=== PATIENT | male | born 1980 | race Caucasian/White ===

== ENCOUNTER 2018-03-24 07:27 | Observation (INO) ==
[~2018-03-24 07:27] MED LIST: ANCEF VIAL 1 GRAM 2 G in NS 100 ML IV 100 ML IV PRN
[2018-03-24] MEDS ORDERED: MARCAINE 0.25% INJ ONE (07:33)
[2018-03-24] MEDS ORDERED: XYLOCAINE 1% and EPINEPHRINE 1:100,000 ONE (07:33)
[2018-03-24] MEDS ORDERED: ANCEF 1 GRAM IV PREMIX* 2 G/100 ML BAG IV ONE (07:40)
[2018-03-24] MEDS ORDERED: NS 1000 ML 1,000 ML IV SCH (08:00)
[2018-03-24] MEDS ORDERED: FENTANYL INJ 250 mcg ONE (08:14)
[2018-03-24 08:51] LABS: BASOPHILS # (AUTO) 0.1 X10^3/uL (0.0-0.1); BASOPHILS % (AUTO) 0.8 % (0.2-1.0); EOSINOPHILS % (AUTO) 0.4 % (0.9-2.9); HEMATOCRIT 34.1 % (42.0-54.0); LYMPHOCYTES # (AUTO) 1.4 X10^3/uL (1.3-2.9); LYMPHOCYTES % (AUTO) 19.4 % (21.0-51.0); MEAN CORPUSCULAR HEMOGLOBIN 31.3 pg (27.0-34.0); MEAN CORPUSCULAR HGB CONC 35.1 g/dL (33.0-35.0); MEAN CORPUSCULAR VOLUME 89.3 fL (80.0-100.0); MONOCYTES # (AUTO) 0.6 x10^3/uL (0.3-0.8); MONOCYTES % (AUTO) 7.7 % (0.0-13.0); NEUTROPHILS # (AUTO) 5.2 x10^3/uL (2.2-4.8); NEUTROPHILS % (AUTO) 71.7 % (42.0-75.0); PLATELET COUNT 105 X10^3/uL (150.0-450.0); RED BLOOD COUNT 3.82 X10^6/uL (4.7-6.0); RED CELL DISTRIBUTION WIDTH 15.8 % (11.6-16.5); WHITE BLOOD COUNT 7.2 X10^3/uL (3.6-10.0)
[2018-03-24 09:04] LABS: ALANINE AMINOTRANSFERASE 50 Units/L (12-78); ALBUMIN 4.1 g/dL (3.4-5.0); ALKALINE PHOSPHATASE 220 Units/L (46-116); ASPARTATE AMINO TRANSFERASE 40 Units/L (15-37); BLOOD UREA NITROGEN 42 mg/dL (7-18); CALCIUM 8.6 mg/dL (8.5-10.1); CARBON DIOXIDE 24.8 mmol/L (21-32); CHLORIDE 91 mmol/L (98-107); COR NA(FOR HYPERGLY) 133 mmol/L (136-145); SODIUM 132 mmol/L (136-145); TOTAL PROTEIN 7.8 g/dL (6.4-8.2); eGFR NON BLACK RACES 24 (>60)
[2018-03-24] MEDS ORDERED: NS 1000 ML 1,000 ML IV ONE (14:01)
[2018-03-24 14:31] LABS: MAGNESIUM 2.3 mg/dL (1.7-2.9)
[2018-03-24] MEDS: NICOTINE PATCH TD SCH (15:20)
[2018-03-24 15:37] VITALS: BMI 26.6
--- NOTE | 2018-03-24 17:06 | US ---
History: Elevated creatinine Exam: Renal ultrasound Comparison: None Technique: Multiple grayscale and color flow Doppler images of the kidneys were obtained. Findings: The right kidney measures 10 x 5.5 x 6 cm. The left kidney measures 9.6 x 5 x 5 cm. Both kidneys are normal in echogenicity with no hydronephrosis, renal stone, or mass. The bladder is unremarkable. IMPRESSION: No abnormality seen. Reported By:
[2018-03-24 17:30] LABS: BILIRUBIN,URINE NEGATIVE (NEGATIVE); BLOOD/HEMOGLOBIN,URINE 2+ (NEGATIVE); GLUCOSE, URINE 4+ (NEGATIVE); KETONES,URINE 2+ (NEGATIVE); LEUKOCYTE ESTERASE ,URINE NEGATIVE (NEGATIVE); NITRITES,URINE NEGATIVE (NEGATIVE); PROTEIN,URINE 2+ (NEGATIVE); UROBILINOGEN,URINE NORMAL (NORMAL)
[2018-03-24 17:35] LABS: APPEARANCE,URINE CLEAR (CLEAR); COLOR,URINE YELLOW (YELLOW)
[2018-03-24 17:36] LABS: AMORPHOUS SEDIMENT,UR 1+ /HPF (NEGATIVE); BACTERIA,URINE TRACE /HPF (NEGATIVE); SQUAMOUS EPITHELIAL CELL,UR RARE /HPF (NEGATIVE)
[2018-03-24] MEDS ORDERED: SNACK - Diabetic Appropriate PO SCH ×2 (20:00)
[2018-03-24] MEDS: ULTRAM PO PRN (20:06)
[2018-03-24] MEDS: LIBRIUM PO SCH ×3 (20:47→21:10)
[2018-03-24] MEDS: HumuLIN R SUBCUT PRN (20:47)
[2018-03-24] MEDS: LEVEMIR SC SCH (20:50)
[2018-03-24] MEDS: NS 1000 ML 1,000 ML IV SCH (20:52)
[2018-03-24] MEDS: SNACK - Diabetic Appropriate PO SCH (20:52)
[2018-03-25] MEDS: NS 1000 ML 1,000 ML IV SCH ×3 (04:22→17:19)
[2018-03-25] MEDS: LIBRIUM PO SCH ×2 (05:40→16:19)
[2018-03-25 06:06] LABS: ALANINE AMINOTRANSFERASE 45 Units/L (12-78); ALBUMIN 3.6 g/dL (3.4-5.0); ALKALINE PHOSPHATASE 187 Units/L (46-116); ASPARTATE AMINO TRANSFERASE 24 Units/L (15-37); BLOOD UREA NITROGEN 39 mg/dL (7-18); CALCIUM 9.1 mg/dL (8.5-10.1); CARBON DIOXIDE 24.5 mmol/L (21-32); CHLORIDE 99 mmol/L (98-107); COR NA(FOR HYPERGLY) 136 mmol/L (136-145); FREE T4 (FREE THYROXINE) 1.01 ng/dL (0.76-1.46); SODIUM 135 mmol/L (136-145); TOTAL PROTEIN 6.8 g/dL (6.4-8.2); TSH (3RD GENERATION) 0.751 uIU/mL (0.358-3.74); eGFR NON BLACK RACES 48 (>60)
[2018-03-25 06:26] LABS: BASOPHILS % (AUTO) 0.7 % (0.2-1.0); EOSINOPHILS % (AUTO) 0.7 % (0.9-2.9); HEMATOCRIT 32.3 % (42.0-54.0); LYMPHOCYTES # (AUTO) 1.6 X10^3/uL (1.3-2.9); LYMPHOCYTES % (AUTO) 29.7 % (21.0-51.0); MEAN CORPUSCULAR HEMOGLOBIN 31.2 pg (27.0-34.0); MEAN CORPUSCULAR HGB CONC 34.2 g/dL (33.0-35.0); MEAN CORPUSCULAR VOLUME 91.2 fL (80.0-100.0); MEAN PLATELET VOLUME 10.1 fL (7.4-11.0); MONOCYTES # (AUTO) 0.5 x10^3/uL (0.3-0.8); MONOCYTES % (AUTO) 10.1 % (0.0-13.0); NEUTROPHILS # (AUTO) 3.1 x10^3/uL (2.2-4.8); NEUTROPHILS % (AUTO) 58.8 % (42.0-75.0); PLATELET COUNT 75 X10^3/uL (150.0-450.0); RED BLOOD COUNT 3.54 X10^6/uL (4.7-6.0); WHITE BLOOD COUNT 5.3 X10^3/uL (3.6-10.0)
[2018-03-25] MEDS: NICOTINE PATCH TD SCH (08:32)
[2018-03-25] MEDS: LEVEMIR SC SCH ×2 (08:34→23:00)
[2018-03-25] MEDS: HumuLIN R SUBCUT PRN ×3 (11:30→23:00)
[2018-03-25] MEDS ORDERED: VISTARIL PO PRN (14:10)
[2018-03-25] MEDS ORDERED: ATIVAN TAB 0.5 MG PO PRN (17:25)
[2018-03-25] MEDS ORDERED: BENADRYL INJ 50 MG VIAL IVP ONE (17:25)
[2018-03-25] MEDS: ULTRAM PO PRN (17:40)
[2018-03-25 17:57] LABS: SERUM ACETONE SMALL (NEGATIVE)
[2018-03-25 18:01] LABS: HEMOGLOBIN A1C 9.8 %
[2018-03-25] MEDS: SNACK - Diabetic Appropriate PO SCH (20:00)
[2018-03-26] MEDS: NS 1000 ML 1,000 ML IV SCH ×2 (01:00→03:34)
[2018-03-26] MEDS: NICOTINE PATCH TD SCH (09:40)
[2018-03-26] MEDS: LEVEMIR SC SCH (09:41)
[2018-03-26] MEDS: HumuLIN R SUBCUT PRN ×2 (11:20→16:30)
[2018-03-26] MEDS ORDERED: FENTANYL INJ 250 mcg ONE (11:36)
[2018-03-26] MEDS ORDERED: ANCEF 1 GRAM IV PREMIX* 1 G/50 ML BAG IV ONE ×2 (11:39→11:49)
[2018-03-26] MEDS ORDERED: NS 1000 ML 1,000 ML ONE (11:39)
[2018-03-26] MEDS ORDERED: XYLOCAINE 1% and EPINEPHRINE 1:100,000 ONE (12:04)
[2018-03-26] MEDS ORDERED: MARCAINE 0.25% INJ ONE (12:04)
[2018-03-26] MEDS ORDERED: DILAUDID INJ ONE (12:18)
[2018-03-26] MEDS ORDERED: FENTANYL INJ 100 mcg ONE ×2 (12:18→12:24)
--- NOTE | 2018-03-26 12:32 | DR.H&P ---
H&P - History & Physical for Day of: H&P Date: 03/24/18 - Chief Complaint Chief Complaint: ABDOMINAL PAIN - History of Present Illness History of Present Illness: 37 WM ADMITTED FOR TREATMENT OF DEHYDRATION, ELECTROLYTE REPLACEMENT. PT WAS SCHEDULED FOR LAP JOEL, PRE OP LABS REVEALED DECREASED RENAL FUNCTION AND HYPONATREMIA. PT ADMITTED FOR HYDRATION AND SURGICAL CLEARANCE. - Past Medical History Past Medical History: Anxiety, Depression, Diabetes, Hypertension - Past Surgical History Surgical History: Ortho Surgery - Family History Family Medical History: Diabetes Mellitus - Social History Does patient currently use any type of tobacco product: Yes Have you used tobacco products in the last 12 months: Yes Type of Tobacco Use: Cigarettes How many years tobacco product used: 10 Packs per day or dips/chews per day: 1 1/2 PPD Does any household member use tobacco: No Alcohol Use: Heavy, DAILY Drug Use: Marijuana - Medications Home Medications: furosemide [From Lasix] Allergy (Verified 03/24/18 18:02) gabapentin Allergy (Verified 03/24/18 18:02) lisinopril Allergy (Verified 03/24/18 18:02) CONTINUE taking the following medications atorvastatin 1 tab PO HS 03/24/18 [History] duloxetine 1 cap PO BID 03/24/18 [History] insulin aspart U-100 [Novolog U-100 Insulin aspart] 10 units SUB-Q AC 03/24/18 [ History] insulin detemir U-100 [Levemir U-100 Insulin] 50 units SUB-Q BID 03/24/18 [ History] levothyroxine 1 tab PO DAILY 03/24/18 [History] metoprolol tartrate 1 tab PO BID 03/24/18 [History] omeprazole 1 cap PO DAILY 03/24/18 [History] quetiapine 1 tab PO HS 03/24/18 [History] - Review of Systems Constitutional: No Symptoms Reported ENT: No Symptoms Reported Respiratory: No Symptoms Reported Cardiovascular: No Symptoms Reported Gastrointestinal: Nausea, Abdominal Pain Genitourinary: No Symptoms Reported Musculoskeletal: No Symptoms Reported Skin: No Symptoms Reported Neurological: No Symptoms Reported - Physical Exam Vital Signs: Temperature 98.4 F Pulse Rate [Apical] 98 Pulse Rate 84 Respiratory Rate 20 Blood Pressure [Right Arm] 142/90 Blood Pressure [Left Arm] 141/94 Blood Pressure 124/77 O2 Sat by Pulse Oximetry 97 Oriented: Normal Eyes: Normal Ear: Normal Nose: Normal Throat: Normal Respiratory: Clear Throughout Cardiovascular: Normal. negative: Edema Auscultation: Bowel Sounds: Normal Palpation: Normal Tenderness: RUQ Skin: Normal Musculoskeletal: Normal Psychiatric: Normal Mood Description: Calm Speech Pattern: Clear - Assessment/Plan (1) Hyponatremia Status: Acute Plan: ADMIT, IV HYDRATION. BLOOD SUGAR CONTROL. PAIN CONTROL. PRN ANXIETY MEDICAITON. RESUME HOME MEDS, BP MONITORING (2) Diabetes Status: Acute (3) Dehydration Status: Acute (4) Alcohol abuse Status: Acute - Allergies Allergies/Adverse Reactions: Allergies Allergy/AdvReac Type Severity Reaction Status Date / Time furosemide [From Lasix] Allergy Verified 03/24/18 18:02 gabapentin Allergy Verified 03/24/18 18:02 lisinopril Allergy Verified 03/24/18 18:02
--- NOTE | 2018-03-26 12:39 | PCM.PROG ---
Progress Note - Progress Note for Day of Date: 03/26/18 - Subjective Subjective: 37 WM ADMITTED ONE DAY AGO FOR SURGICAL CLEARANCE FOR LAP JOEL. PT HAS IMPROVED SODIUM THIS AM AND IMPROVED RENAL FUNCTION. NPO THIS AM. PT HAD CXR AND EKG, WILL CONTIUE PRN MEDICATION, CLEAR FOR SURGICAL INTERVENTION. - Past Medical Family Social History Past Med/Fam/Surg Hx: No changes since H&P Allergies: Allergies furosemide [From Lasix] Allergy (Verified 03/24/18 18:02) gabapentin Allergy (Verified 03/24/18 18:02) lisinopril Allergy (Verified 03/24/18 18:02) - Review of Systems ROS: No change since H&P - Vital Signs and I&O's Vital Signs: Temperature 98.4 F Pulse Rate [Apical] 98 Pulse Rate 84 Respiratory Rate 20 Blood Pressure [Right Arm] 142/90 Blood Pressure [Left Arm] 141/94 Blood Pressure 124/77 O2 Sat by Pulse Oximetry 97 Intake and Output: Intake & Output 03/24/18 03/25/18 03/26/18 03/27/18 11:59 11:59 11:59 11:59 Intake Total 0 / 0 480 / 480 2560 / 2560 Output Total 0 / 0 Balance 0 / 0 480 / 480 2560 / 2560 - Physical Exam Oriented: Normal Eyes: Normal Ear: Normal Nose: Normal Throat: Normal Respiratory: Normal Cardiovascular: Normal. negative: Edema Auscultation: Bowel Sounds: Normal Tenderness: RUQ Skin: Normal Musculoskeletal: Normal Psychiatric: Normal Mood Description: Calm Speech Pattern: Clear - Laboratory and Diagnostics Result Diagrams: 03/25/18 04:48 03/25/18 22:10 Labs: 03/24/18 16:50 Urine,Clean Catch Urine Culture - Final Laboratory WBC 5.3 X10^3/uL (3.6-10.0) 03/25/18 04:48 RBC 3.54 X10^6/uL (4.7-6.0) L 03/25/18 04:48 Hgb 11.0 g/dL (13.5-18.0) L 03/25/18 04:48 Hct 32.3 % (42.0-54.0) L 03/25/18 04:48 MCV 91.2 fL (80.0-100.0) 03/25/18 04:48 MCH 31.2 pg (27.0-34.0) 03/25/18 04:48 MCHC 34.2 g/dL (33.0-35.0) 03/25/18 04:48 RDW 16.0 % (11.6-16.5) 03/25/18 04:48 Plt Count 75 X10^3/uL (150.0-450.0) L 03/25/18 04:48 MPV 10.1 fL (7.4-11.0) 03/25/18 04:48 Neut % (Auto) 58.8 % (42.0-75.0) 03/25/18 04:48 Lymph % (Auto) 29.7 % (21.0-51.0) 03/25/18 04:48 [place] % (Auto) 10.1 % (0.0-13.0) 03/25/18 04:48 Eos % (Auto) 0.7 % (0.9-2.9) L 03/25/18 04:48 Baso % (Auto) 0.7 % (0.2-1.0) 03/25/18 04:48 Neut # (Auto) 3.1 x10^3/uL (2.2-4.8) 03/25/18 04:48 Lymph # (Auto) 1.6 X10^3/uL (1.3-2.9) 03/25/18 04:48 [place] # (Auto) 0.5 x10^3/uL (0.3-0.8) 03/25/18 04:48 Eos # (Auto) 0.0 x10^3/uL (0.0-0.2) 03/25/18 04:48 Baso # (Auto) 0.0 X10^3/uL (0.0-0.1) 03/25/18 04:48 Absolute Nucleated RBC 0.0 /100WBC 03/25/18 04:48 D-Dimer 174 ng/mL (0-400) 03/24/18 08:44 Sodium 135 mmol/L (136-145) L 03/25/18 04:48 Corrected Sodium 136 mmol/L (136-145) 03/25/18 04:48 Potassium 3.6 mmol/L (3.5-5.1) 03/25/18 04:48 Chloride 99 mmol/L (98-107) 03/25/18 04:48 Carbon Dioxide 24.5 mmol/L (21-32) 03/25/18 04:48 BUN 39 mg/dL (7-18) H 03/25/18 04:48 Creatinine 1.70 mg/dL (0.70-1.30) H 03/25/18 04:48 Est GFR (MDRD) Af Amer 58 (>60) L 03/25/18 04:48 Est GFR (MDRD) Non-Af 48 (>60) L 03/25/18 04:48 Glucose 340 mg/dL (65-99) H 03/25/18 22:10 POC Glucose (mg/dL) 266 mg/dL (65-99) H 03/26/18 11:12 Hemoglobin A1c 9.8 % 03/25/18 14:39 Calcium 9.1 mg/dL (8.5-10.1) 03/25/18 04:48 Corrected Calcium TNP 03/25/18 04:48 Magnesium 2.3 mg/dL (1.7-2.9) 03/24/18 08:44 Total Bilirubin 0.50 mg/dL (0.2-1.0) 03/25/18 04:48 AST 24 Units/L (15-37) 03/25/18 04:48 ALT 45 Units/L (12-78) 03/25/18 04:48 Alkaline Phosphatase 187 Units/L (46-116) H 03/25/18 04:48 Total Protein 6.8 g/dL (6.4-8.2) 03/25/18 04:48 Albumin 3.6 g/dL (3.4-5.0) 03/25/18 04:48 Globulin 3.2 g/dL (2.5-4.5) 03/25/18 04:48 Albumin/Globulin Ratio 1.1 Ratio (1.1-2.1) 03/25/18 04:48 Amylase 47 Units/L (25-115) 03/24/18 08:44 Lipase 101 Units/L (73-393) 03/24/18 08:44 Free T4 1.01 ng/dL (0.76-1.46) 03/25/18 04:48 TSH 3rd Generation 0.751 uIU/mL (0.358-3.74) 03/25/18 04:48 Specimen Type Clean catch urine 03/24/18 16:50 Urine Color Yellow (YELLOW) 03/24/18 16:50 Urine Appearance Clear (CLEAR) 03/24/18 16:50 Urine pH 5.0 (5.0 - 8.0) 03/24/18 16:50 Ur Specific [place] 1.015 (1.000-1.030) 03/24/18 16:50 Urine Protein 2+ (NEGATIVE) 03/24/18 16:50 Urine Glucose (UA) 4+ (NEGATIVE) 03/24/18 16:50 Urine Ketones 2+ (NEGATIVE) 03/24/18 16:50 Urine Occult Blood 2+ (NEGATIVE) 03/24/18 16:50 Urine Nitrite Negative (NEGATIVE) 03/24/18 16:50 Urine Bilirubin Negative (NEGATIVE) 03/24/18 16:50 Urine Urobilinogen Normal (NORMAL) 03/24/18 16:50 Ur Leukocyte Esterase Negative (NEGATIVE) 03/24/18 16:50 Urine RBC 3-5 /HPF (NONE SEEN) 03/24/18 16:50 Urine WBC None seen /HPF (NONE SEEN) 03/24/18 16:50 Ur Squamous Epith Cells Rare /HPF (NEGATIVE) 03/24/18 16:50 Amorphous Sediment 1+ /HPF (NEGATIVE) 03/24/18 16:50 Urine Bacteria Trace /HPF (NEGATIVE) 03/24/18 16:50 Ur Culture Indicated? Yes/culture set up 03/24/18 16:50 Urine Opiates Screen Negative (NEG=<300) 03/25/18 14:22 Urine Methadone Screen Negative (NEG=<300) 03/25/18 14:22 Ur Barbiturates Screen Negative (NEG=<200) 03/25/18 14:22 Ur Phencyclidine Scrn Negative (NEG=<25) 03/25/18 14:22 Ur Amphetamines Screen Negative (NEG=<1000) 03/25/18 14:22 U Benzodiazepines Scrn Negative (NEG=<200) 03/25/18 14:22 Urine Cocaine Screen Negative (NEG=<300) 03/25/18 14:22 U Marijuana (THC) Screen Positive (NEG=<50) A 03/25/18 14:22 Ethyl Alcohol mg/dL < 3 mg/dL (0-19.9) 03/25/18 14:39 Acetone, Semi-Quant Small (NEGATIVE) H 03/25/18 14:39 - Plan (1) Hyponatremia Status: Acute Plan: IV HYDRATION. BLOOD SUGAR CONTROL. PAIN CONTROL. PRN ANXIETY MEDICAITON. RESUME HOME MEDS, BP MONITORING (2) Diabetes Status: Acute (3) Dehydration Status: Acute Plan: GENTLE HYDRATION (4) Alcohol abuse Status: Acute (5) Biliary dyskinesia Status: Acute Plan: NPO FOR LAP JOEL TODAY
[2018-03-26] MEDS ORDERED: REGLAN INJ 10 MG VIAL IVP PRN (13:09)
[2018-03-26] MEDS ORDERED: BENADRYL INJ 50 MG VIAL IVP PRN (13:09)
[2018-03-26] MEDS ORDERED: PHENERGAN INJ 25 MG IVP PRN (13:09)
[2018-03-26] MEDS ORDERED: ZOFRAN INJ 4 MG VIAL IVP PRN (13:09)
[2018-03-26] MEDS ORDERED: DILAUDID INJ IVP PRN (13:09)
--- NOTE | 2018-03-26 13:11 | OR.GENERIC ---
Post-Op Note Generic - Post-Op Note Operative Report: Operative Report Date of Operation: March 26, 2018 Pre-Operative Diagnosis: 1. Biliary dyskinesia. 2. Cholelithiasis. 3. Diabetes mellitus. 4. Recurrent pancreatitis. Post-Operative Diagnosis: 1. Biliary dyskinesia. 2. Cholelithiasis. 3. Diabetes mellitus. 4. Recurrent pancreatitis. 5. Nodular liver. Procedure: Laparoscopic cholecystectomy. Surgeon: Joe Navarro MD. Electric Powerline Examiner: Americo Montero CRNA. Specimen: Gallbladder. Estimated blood loss: 50 mL. Complications: None. Summary: The patient is a 37 year old male who presented with biliary dyskinesia, cholelithiasis, diabetes mellitus, and recurrent pancreatitis. The patient was offered cholecystectomy. The risk and benefits of the procedure including difficulty with anesthesia, bleeding, infection, conversion to open procedure, bile leak, hernia formation, DVT, as well as PE were discussed with the patient. The patient understood these risks and requested the procedure. On March 26, 2018, the patient was brought to the operative theatre. A time out was performed verifying the patient and procedure. The patient received Ancef for pre-operative antibiosis. After satisfactory induction of general endotracheal anesthesia, the abdomen was prepped with Chloraprep and draped in the usual sterile fashion. The skin and subcutaneous tissue inferior to the umbilicus was anesthetized using local anesthetic. The skin was incised sharply. A 12 mm trocar was placed though the incision and into the peritoneal cavity using the Optiview technique. Carbon dioxide was infiltrated through this trocar to obtain a pneumoperitoneum of 15 mm Hg. A camera was placed through this trocar and swept in all directions. No injury was seen from entering the peritoneal cavity. A site was selected in the subxiphoid location for our 2nd trocar. The skin and fascia was anesthetized using local anesthetic. The skin was incised sharply. A 5 mm trocar was placed into the peritoneal cavity under direct visualization. In a similar manner, two additional 5 mm trocars were placed. The first was placed in the mid- clavicular line approximately 2 fingerbreadths inferior to the left costal margin and a second in the anterior axillary line approximately 2 fingerbreadths inferior to the left costal margin. The patient was placed in reverse Trendelenburg and rotated to the patients left. The gallbladder was grasped at the fundus and elevated cephalad and slightly lateral. The liver was noted to be nodular. The peritoneum on the medial and lateral aspects of the infundibulum of the gallbladder was scored using hook electrocautery. The liver tore with retraction at the edge of the gallbladder. Bleeding was controlled using electrocautery. Using blunt dissection, the cystic artery and duct were isolated. The critical view of safety was obtained. A posterior branch of the cystic artery was seen with active bleeding. This was controlled with endoclips. No further bleeding was seen. The cystic duct and artery were divided between endoclips. The gallbladder was dissected free using hook electrocautery. The gallbladder was placed in an endobag and removed through the umbilical trocar site without difficulty. The trocar and camera were placed back inside the abdomen. Our clips were noted in good position. Bleeding of the gallbladder fossa was controlled using electrocautery. At this point, the 5 mm trocars were removed under direct visualization. No bleeding was seen. The umbilical trocar was then removed and pneumoperitoneum released. The fascia at the umbilicus was closed using a 0-Vicryl placed in a figure-of- eight configuration. The skin edges at all incisions were re-approximated using inverted, interrupted 4-0 Monocryl sutures. Mastisol and Steri-strips were placed. Sterile dressings were placed. The patient was awakened and taken to the recovery room in stable condition. There were no complications. All counts were correct.
[2018-03-26] MEDS ORDERED: PERCOCET TAB 5/325 MG PO PRN (13:58)
[2018-03-26] MEDS ORDERED: CATAPRES TAB 0.1 MG PO PRN (15:11)
[2018-03-26] MEDS ORDERED: TORADOL 30 MG VIAL IVP ONE (15:15)
[2018-03-26] MEDS ORDERED: NEOSTIGMINE INJ ONE (15:29)
[2018-03-26] MEDS ORDERED: ZOFRAN INJ 4 MG VIAL ONE (15:29)
[2018-03-26] MEDS ORDERED: QUELICIN (OR ANECTINE) ONE (15:29)
[2018-03-26] MEDS ORDERED: NORCURON INJ 10 MG VIAL ONE (15:29)
[2018-03-26] MEDS ORDERED: VERSED ONE (15:29)
[2018-03-26] MEDS ORDERED: LTA KIT LIDOCAINE 4% ONE (15:29)
[2018-03-26] MEDS ORDERED: DIPRIVAN VIAL ONE (15:29)
[2018-03-26] MEDS ORDERED: ROBINUL ONE (15:29)
[2018-03-26] MEDS ORDERED: ULTANE GAS IN ONE (15:29)
[2018-03-26] MEDS ORDERED: XYLOCAINE 2 % (PLAIN) ONE (15:29)
[2018-03-26 17:19] VITALS: BP 141/81
--- NOTE | 2018-04-13 22:39 | PCM.DCPLAN ---
Discharge Summary - Admission Date Date of Admission: 03/24/18 - Discharge Date Discharge Date: 03/26/18 - Admission Diagnoses (1) Biliary dyskinesia Status: Acute (2) Dehydration Status: Acute (3) Diabetes Status: Acute (4) Acute kidney failure Status: Acute - Discharge Diagnoses Discharge Diagnosis: SAME ADMISSION DIAGNOSIS - Discharge Medications Discharge Medications: Home Medication List atorvastatin 1 tab PO HS 03/24/18 [History] duloxetine 1 cap PO BID 03/24/18 [History] insulin aspart U-100 [Novolog U-100 Insulin aspart] 10 units SUB-Q AC 03/24/18 [ History] insulin detemir U-100 [Levemir U-100 Insulin] 50 units SUB-Q BID 03/24/18 [ History] levothyroxine 1 tab PO DAILY 03/24/18 [History] metoprolol tartrate 1 tab PO BID 03/24/18 [History] omeprazole 1 cap PO DAILY 03/24/18 [History] quetiapine 1 tab PO HS 03/24/18 [History] oxycodone-acetaminophen [Percocet] 1 tab PO Q6H PRN #20 tab 03/26/18 [Rx] Prescriptions: oxycodone-acetaminophen [Percocet] [facility] - Hospital Course Vital Signs: Temperature 98.0 F Pulse Rate [Apical] 110 Pulse Rate 113 Respiratory Rate 20 Blood Pressure [Right Arm] 142/90 Blood Pressure [Left Arm] 141/81 Blood Pressure 134/81 O2 Sat by Pulse Oximetry 98 Latest Lab Results: Laboratory Last Values WBC 5.3 X10^3/uL (3.6-10.0) 03/25/18 04:48 RBC 3.54 X10^6/uL (4.7-6.0) L 03/25/18 04:48 Hgb 11.0 g/dL (13.5-18.0) L 03/25/18 04:48 Hct 32.3 % (42.0-54.0) L 03/25/18 04:48 MCV 91.2 fL (80.0-100.0) 03/25/18 04:48 MCH 31.2 pg (27.0-34.0) 03/25/18 04:48 MCHC 34.2 g/dL (33.0-35.0) 03/25/18 04:48 RDW 16.0 % (11.6-16.5) 03/25/18 04:48 Plt Count 75 X10^3/uL (150.0-450.0) L 03/25/18 04:48 MPV 10.1 fL (7.4-11.0) 03/25/18 04:48 Neut % (Auto) 58.8 % (42.0-75.0) 03/25/18 04:48 Lymph % (Auto) 29.7 % (21.0-51.0) 03/25/18 04:48 [place] % (Auto) 10.1 % (0.0-13.0) 03/25/18 04:48 Eos % (Auto) 0.7 % (0.9-2.9) L 03/25/18 04:48 Baso % (Auto) 0.7 % (0.2-1.0) 03/25/18 04:48 Neut # (Auto) 3.1 x10^3/uL (2.2-4.8) 03/25/18 04:48 Lymph # (Auto) 1.6 X10^3/uL (1.3-2.9) 03/25/18 04:48 [place] # (Auto) 0.5 x10^3/uL (0.3-0.8) 03/25/18 04:48 Eos # (Auto) 0.0 x10^3/uL (0.0-0.2) 03/25/18 04:48 Baso # (Auto) 0.0 X10^3/uL (0.0-0.1) 03/25/18 04:48 Absolute Nucleated RBC 0.0 /100WBC 03/25/18 04:48 D-Dimer 174 ng/mL (0-400) 03/24/18 08:44 Sodium 135 mmol/L (136-145) L 03/25/18 04:48 Corrected Sodium 136 mmol/L (136-145) 03/25/18 04:48 Potassium 3.6 mmol/L (3.5-5.1) 03/25/18 04:48 Chloride 99 mmol/L (98-107) 03/25/18 04:48 Carbon Dioxide 24.5 mmol/L (21-32) 03/25/18 04:48 BUN 39 mg/dL (7-18) H 03/25/18 04:48 Creatinine 1.70 mg/dL (0.70-1.30) H 03/25/18 04:48 Est GFR (MDRD) Af Amer 58 (>60) L 03/25/18 04:48 Est GFR (MDRD) Non-Af 48 (>60) L 03/25/18 04:48 Glucose 340 mg/dL (65-99) H 03/25/18 22:10 POC Glucose (mg/dL) 224 mg/dL (65-99) H 03/26/18 15:57 Hemoglobin A1c 9.8 % 03/25/18 14:39 Calcium 9.1 mg/dL (8.5-10.1) 03/25/18 04:48 Corrected Calcium TNP 03/25/18 04:48 Magnesium 2.3 mg/dL (1.7-2.9) 03/24/18 08:44 Total Bilirubin 0.50 mg/dL (0.2-1.0) 03/25/18 04:48 AST 24 Units/L (15-37) 03/25/18 04:48 ALT 45 Units/L (12-78) 03/25/18 04:48 Alkaline Phosphatase 187 Units/L (46-116) H 03/25/18 04:48 Total Protein 6.8 g/dL (6.4-8.2) 03/25/18 04:48 Albumin 3.6 g/dL (3.4-5.0) 03/25/18 04:48 Globulin 3.2 g/dL (2.5-4.5) 03/25/18 04:48 Albumin/Globulin Ratio 1.1 Ratio (1.1-2.1) 03/25/18 04:48 Amylase 47 Units/L (25-115) 03/24/18 08:44 Lipase 101 Units/L (73-393) 03/24/18 08:44 Free T4 1.01 ng/dL (0.76-1.46) 03/25/18 04:48 TSH 3rd Generation 0.751 uIU/mL (0.358-3.74) 03/25/18 04:48 Specimen Type Clean catch urine 03/24/18 16:50 Urine Color Yellow (YELLOW) 03/24/18 16:50 Urine Appearance Clear (CLEAR) 03/24/18 16:50 Urine pH 5.0 (5.0 - 8.0) 03/24/18 16:50 Ur Specific [place] 1.015 (1.000-1.030) 03/24/18 16:50 Urine Protein 2+ (NEGATIVE) 03/24/18 16:50 Urine Glucose (UA) 4+ (NEGATIVE) 03/24/18 16:50 Urine Ketones 2+ (NEGATIVE) 03/24/18 16:50 Urine Occult Blood 2+ (NEGATIVE) 03/24/18 16:50 Urine Nitrite Negative (NEGATIVE) 03/24/18 16:50 Urine Bilirubin Negative (NEGATIVE) 03/24/18 16:50 Urine Urobilinogen Normal (NORMAL) 03/24/18 16:50 Ur Leukocyte Esterase Negative (NEGATIVE) 03/24/18 16:50 Urine RBC 3-5 /HPF (NONE SEEN) 03/24/18 16:50 Urine WBC None seen /HPF (NONE SEEN) 03/24/18 16:50 Ur Squamous Epith Cells Rare /HPF (NEGATIVE) 03/24/18 16:50 Amorphous Sediment 1+ /HPF (NEGATIVE) 03/24/18 16:50 Urine Bacteria Trace /HPF (NEGATIVE) 03/24/18 16:50 Ur Culture Indicated? Yes/culture set up 03/24/18 16:50 Urine Opiates Screen Negative (NEG=<300) 03/25/18 14:22 Urine Methadone Screen Negative (NEG=<300) 03/25/18 14:22 Ur Barbiturates Screen Negative (NEG=<200) 03/25/18 14:22 Ur Phencyclidine Scrn Negative (NEG=<25) 03/25/18 14:22 Ur Amphetamines Screen Negative (NEG=<1000) 03/25/18 14:22 U Benzodiazepines Scrn Negative (NEG=<200) 03/25/18 14:22 Urine Cocaine Screen Negative (NEG=<300) 03/25/18 14:22 U Marijuana (THC) Screen Positive (NEG=<50) A 03/25/18 14:22 Ethyl Alcohol mg/dL < 3 mg/dL (0-19.9) 03/25/18 14:39 Acetone, Semi-Quant Small (NEGATIVE) H 03/25/18 14:39 Tissue Pathology To follow 03/26/18 12:34 Hospital Course: 37 WM ADMITTED FOR SURGICAL CLEARANCE FOR LAP JOEL. PT DID HAVE IMPROVED SODIUM AND IMPROVED RENAL FUNCTION. PATIENT UNDERWENT LAP JOEL. PATIENT TOLERATED SURGERY. PATIENT WAS DISCHARGED HOME. - Discharge Plan Disposition: HOME, SELF-CARE Condition: Stable Prescriptions: oxycodone-acetaminophen [Percocet] 1 tab PO Q6H PRN #20 tab PRN Reason: Pain, Moderate - Follow ups/Referrals Follow ups/Referrals: [facility] [CONSULTING PHYSICIAN] - PCP - Instructions Additional Instructions: PT SENT TO ROOM [address] [email or web address] no driving while talking pain medication,no lifting over ten pounds,remove surgical dressing in 48 hours, may take a shower with soap and water.return to in 1 week. call office at [phone].
== END 2018-03-26 17:15 | disposition home or self-care (01) ==
LOC: SURG1 07:27 → MED/SURG 07:27
PROVIDERS: ADMIT Internal Medicine; ATTEND Internal Medicine
DX: F10.10 Alcohol abuse, uncomplicated; E87.1 Hypo-osmolality and hyponatremia; Z79.4 Long term (current) use of insulin; R10.84 Generalized abdominal pain; K82.8 Other specified diseases of gallbladder; Z79.899 Other long term (current) drug therapy; E11.65 Type 2 diabetes mellitus with hyperglycemia; E86.0 Dehydration; K80.80 Other cholelithiasis without obstruction; R11.2 Nausea with vomiting, unspecified; R06.02 Shortness of breath; F12.90 Cannabis use, unspecified, uncomplicated; K85.90 Acute pancreatitis without necrosis or infection, unspecified
CPT/HCPCS: 36415; 71010; 71045; 76770; 80053; 80307; 80320; 81001; 82009; 82150; 82947; 83036; 83690; 83735; 84439; 84443; 85025; 85378; 87086; 88304; 93005; 93010; A4216; A4222; Q0177; S0020; G0378; G0434; G6040; J0330; J0690; J1170; J1200; J1815; J1885; J2250; J2405; J2704; J2710; J3010; J3490; J7030